=== PATIENT | female | born 1995 | race Caucasian/White ===

== ENCOUNTER 2023-09-04 15:20 | Observation (INO) ==
--- NOTE | 2023-09-04 16:42 | Emergency Department Note ---
ED Provider Note History of Present Illness Chief Complaint: Allergic Reaction Time Seen by Provider: 09/04/23 16:21 28-year-old female who presents the emergency department with complaint of an allergic reaction, including full body hives, welts and throat swelling. The patient reports that she ate some organic cookies last night that had peanut butter and chocolate chips and ingredient. The patient reports a prior history of mild reaction to these foods, but reports that when she starts to feel tingling in her throat, she can usually stop eating and and resolve her symptoms. The patient reports that she was seen by her PCP this morning, and provided a prescription for triamcinolone cream and prednisone. They also recommended that she take Zyrtec and Pepcid as well. The patient did take Benadryl last night which helped with symptoms. She has not taken any Benadryl today. The patient denies any chest pain, palpitations or shortness of breath. She does not feel that her throat swelling has improved or worsened throughout the day. She reports that the rash is itchy. She has not tried any cool compresses for the rash. The patient currently denies any pain. Home Medications Medication Instructions Recorded Confirmed Type alprazolam 0.5 mg tablet (Xanax) 0.5 mg PO BID PRN Anxiety 06/13/22 09/04/23 History bupropion HCl 300 mg 24 hr tablet, 300 mg PO QAM 06/13/22 09/04/23 History extended release prazosin 2 mg capsule 2 mg PO HS 09/25/22 09/04/23 History vitamin B comp and C no.3 15 mg-10 1 cap PO QAM 06/03/23 09/04/23 History mg-50 mg-5 mg-300 mg capsule (B Complex Plus Vitamin C) topiramate 50 mg tablet 50 mg PO HS #30 tabs 08/11/23 09/04/23 Rx atomoxetine 80 mg capsule 80 mg PO QAM 09/04/23 09/04/23 History fluoxetine 40 mg capsule 60 mg PO QAM 09/04/23 09/04/23 History omeprazole 40 mg capsule,delayed 40 mg PO QAM 09/04/23 09/04/23 History release prednisone 10 mg tablet 10 mg PO DAILY #15 tabs 09/04/23 09/04/23 Rx sumatriptan succinate 50 mg tablet 50 mg PO UD PRN Migraine Headache 09/04/23 09/04/23 History triamcinolone acetonide 0.5 % 1 applic topical BID #15 grams 09/04/23 09/04/23 Rx topical cream zaleplon 10 mg capsule 10 mg PO HS 09/04/23 09/04/23 History Allergies Allergy/AdvReac Type Severity Reaction Status Date / Time chocolate Allergy Severe THROAT Verified 09/04/23 19:17 TIGHTENS, HARD TO SWALLOW, HIVES peanut Allergy Severe THROAT Verified 09/04/23 19:17 TIGHTENS, HARD TO SWALLOW, HIVES Past Med/Surg History Problem List (Updated 09/05/23 @ 00:16 by Chaka Floyd) Food allergy (Acute) Anaphylaxis (Acute) Vitamin D deficiency Fatigue GERD (gastroesophageal reflux disease) Depression Anxiety Hirsutism Medical History Chronic fatigue Chronic diarrhea PTSD (post-traumatic stress disorder) attempted SA Anxiety and depression Migraine without aura Surgical History S/P tonsillectomy S/P wisdom tooth extraction History of adenoidectomy History of appendectomy Family History Mother Hypertension Depression Anxiety Father Hypertension Depression Denies family history of Ovarian cancer Prostate cancer Myocardial infarction Breast cancer Lung cancer Colorectal cancer Social History Smoking Status: Never smoker Second Hand Exposure: No; Do You Dip or Chew Tobacco: No; Hx Alcohol Use: Yes Alcohol type: other Alcohol type Comment: mixed drinks Alcohol Intake Frequency Comment: 1-2 drinks every 2 weeks Hx Substance Use: Yes Non-Prescribed Medications: Crack / Cocaine and Marijuana Last Used Substance Other:: 2020 Preferred Language: Citizen Of [place] Communication Ability: Effective Visual Impairment: Limited Hearing Ability: Normal marital status: Single Current Living Situation: Alone Current Living Situation Comment: 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 How many Children do You have: 0 Feels Safe at Home: Yes Childhood Exposure to Second-Hand Smoke: No during the past year weight has: increased > 10 lbs Dental Care, Regularly: No Physical Activity Frequency: Does not Exercise Physical Exam Vital Signs Vital Signs - 24 hr 09/04/23 15:34 09/04/23 15:46 09/04/23 18:05 Temperature 36.8 C Temperature Source Temporal Artery Scan Pulse Rate 112 H Pulse Rate [Right Finger] 90 Pulse Rhythm Pulse Rhythm [Right Finger] Regular Pulse Strength [Right Finger] Normal Respiratory Rate 18 22 18 Respiratory Effort / Characteristics Non-Labored Non-Labored Non-Labored Respiratory Depth Normal Normal Normal Respiratory Pattern Regular Regular Blood Pressure 137/62 Blood Pressure [Right Arm] 130/78 120/70 Blood Pressure Mean 87 Blood Pressure Mean [Right Arm] 95 86 Blood Pressure Position [Right Arm] Sitting Sitting Pulse Oximetry 100 100 99 Oxygen Delivery Method Room Air Room Air Room Air Sepsis Recent Fever Within 48 Hours No Sepsis New/Unexplained Change in Mental Status No Sepsis Action Taken by Nursing No Action Required 09/04/23 19:00 09/04/23 19:00 09/04/23 20:31 Temperature Temperature Source Pulse Rate 83 94 H Pulse Rate [Right Finger] Pulse Rhythm Regular Pulse Rhythm [Right Finger] Pulse Strength [Right Finger] Respiratory Rate 18 Respiratory Effort / Characteristics Respiratory Depth Respiratory Pattern Blood Pressure Blood Pressure [Right Arm] Blood Pressure Mean Blood Pressure Mean [Right Arm] Blood Pressure Position [Right Arm] Pulse Oximetry 98 98 Oxygen Delivery Method Room Air Room Air Sepsis Recent Fever Within 48 Hours Sepsis New/Unexplained Change in Mental Status Sepsis Action Taken by Nursing 09/04/23 21:00 09/04/23 22:57 09/05/23 00:02 Temperature Temperature Source Pulse Rate Pulse Rate [Right Finger] 87 90 82 Pulse Rhythm Pulse Rhythm [Right Finger] Regular Regular Pulse Strength [Right Finger] Normal Normal Respiratory Rate 18 18 17 Respiratory Effort / Characteristics Non-Labored Spontaneous Non-Labored Spontaneous Respiratory Depth Normal Normal Respiratory Pattern Regular Regular Blood Pressure Blood Pressure [Right Arm] 122/88 159/78 H Blood Pressure Mean Blood Pressure Mean [Right Arm] 99 105 Blood Pressure Position [Right Arm] Lying Pulse Oximetry 98 99 100 Oxygen Delivery Method Room Air Room Air Room Air Sepsis Recent Fever Within 48 Hours Sepsis New/Unexplained Change in Mental Status Sepsis Action Taken by Nursing 09/05/23 00:26 Temperature Temperature Source Pulse Rate 94 H Pulse Rate [Right Finger] Pulse Rhythm Pulse Rhythm [Right Finger] Pulse Strength [Right Finger] Respiratory Rate Respiratory Effort / Characteristics Respiratory Depth Respiratory Pattern Blood Pressure Blood Pressure [Right Arm] Blood Pressure Mean Blood Pressure Mean [Right Arm] Blood Pressure Position [Right Arm] Pulse Oximetry Oxygen Delivery Method Sepsis Recent Fever Within 48 Hours Sepsis New/Unexplained Change in Mental Status Sepsis Action Taken by Nursing CONSTITUTIONAL: Healthy and well nourished. Alert and oriented X 3. GCS 15. Patient does not appear in any acute distress. HEENT: No facial edema noted. Examination of oropharynx shows mild uvulitis without evidence for lip or tongue swelling.. RESPIRATORY: Clear to auscultation bilaterally with no wheezing, crackles, rhonchi or stridor. CARDIOVASCULAR: Regular rate and rhythm with no murmurs, rubs or gallops. INTEGUMENTARY: Patient is covered with areas of an urticarial rash. No vesicles, pustules or desquamation. Palms are spared. HEMATOLOGIC: No ecchymosis or petechiae. PSYCHIATRIC: Positive affect. NEUROLOGIC: No focal neurologic deficits noted. Course Course Patient history and physical exam were performed. Nurses notes were reviewed. Vital signs were reviewed and were normal. Because of throat involvement, I did recommend parenteral treatment, and the patient was in agreement. IV access was established, and labs are drawn. The patient was hydrated with a normal saline 500 cc bolus, and administered IV Decadron, Benadryl and Pepcid. Review of labs showed a normal CBC and CMP. Sed rate was mildly elevated at 27. A tryptase level was ordered and is pending. After approximately 1 hour, the patient was still reporting some itching and persistent rash. I recommended applying an ice pack, but the patient reported that she was cold and did not want to put ice on the sites of itchiness or rash. Approximate 45 minutes later, the patient then started to complain of some mild central chest discomfort that felt like reflux. She reports that the throat discomfort did seem to improve, but not completely. She reported that she was also getting itchier. At this point, I did recommend administering epinephrine, which would also include cardiac monitoring and observation for 3 hours. The patient was in agreement with this plan. The patient was administered subcu epinephrine. An initial ECG was performed, showing a normal sinus rhythm with prolonged QT. The patient was placed on market research manager while in the emergency department. A portable chest x-ray was performed and was normal. The patient was frequently reassessed every 5 minutes for approximately 30 minutes after being administered the epinephrine with improvement of symptoms. The patient was reassessed again at approximately 2 hours, reporting resolution of her chest and throat discomfort. She was still complaining of localized areas of itching, with recommendations for application of ice. After 3 hours of total observation, the patient reported that she was starting to feel tightness in her throat again, along with development of evolving areas of hives. The patient was administered additional epinephrine IM. The case was then discussed with Dr. Howe, ED attending physician, as well as Dr. Aviles, [facility] hospitalist, who evaluated patient and has agreed to admission. Please see the hospitalist dictations for further treatment and final disposition. Administered Medications Diphenhydramine HCl (Diphenhydramine 50 Mg/Ml Vial) 25 mg IV Q4H JANETH Stop: 10/05/23 00:59 Last Admin: 09/05/23 01:00 Dose: 25 mg Documented By: JOSEFINA Dexamethasone 6 mg/ Syringe 1.5 mls @ 1 mls/min IV Q6H JANETH Stop: 10/04/23 22:59 Last Admin: 09/04/23 23:44 Dose: 1 mls/min Documented By: JOSEFINA Lactated Ringer's (Lr) 1,000 mls @ 125 mls/hr IV .Q8H JANETH Stop: 09/05/23 06:59 Last Admin: 09/04/23 23:44 Dose: 125 mls/hr Documented By: JOSEFINA Discontinued Medications Dexamethasone Sodium Phosphate (DexamethasonePf 10 Mg/Ml Vial) 10 mg IV NOW ONE Stop: 09/04/23 16:37 Last Admin: 09/04/23 18:00 Dose: 10 mg Documented By: [facility] Diphenhydramine HCl (Diphenhydramine 50 Mg/Ml Vial) 25 mg IV NOW STA Stop: 09/04/23 16:37 Last Admin: 09/04/23 18:00 Dose: 25 mg Documented By: [facility] Diphenhydramine HCl (Diphenhydramine 50 Mg/Ml Vial) 25 mg IV NOW STA Stop: 09/04/23 18:50 Last Admin: 09/04/23 19:13 Dose: 25 mg Documented By: IDD Diphenhydramine HCl (Diphenhydramine 50 Mg/Ml Vial) Confirm Administered Dose 50 mg .ROUTE .STK-MED ONE Stop: 09/05/23 00:56 Last Admin: 09/05/23 00:58 Dose: Not Given Documented By: JOSEFINA Epinephrine HCl (Epinephrine Inj 1 Mg/Ml Amp) 0.3 mg IM NOW STA Stop: 09/04/23 18:50 Last Admin: 09/04/23 19:14 Dose: 0.3 mg Documented By: CHUCKY Epinephrine HCl (Epinephrine Inj 1 Mg/Ml Amp) 0.3 mg IM NOW STA Stop: 09/04/23 22:44 Last Admin: 09/04/23 22:53 Dose: 0.3 mg Documented By: CHUCKY Sodium Chloride (Nss) 500 mls @ 999 mls/hr IV .Q31M ONE Stop: 09/04/23 17:06 Last Infusion: 09/04/23 19:04 Dose: Infused Documented By: Admin: 09/04/23 18:01 Dose: 999 mls/hr Documented By: ARGENIS Famotidine (Pepcid 20mg Iv Push) 20 mg in 5 mls @ 2.5 mls/min IV NOW STA Stop: 09/04/23 16:37 Last Admin: 09/04/23 18:00 Dose: 2.5 mls/min Documented By: [facility] Methylprednisolone (Methylprednisolone 125 Mg/2 Ml Vial) Confirm Administered Dose 125 mg .ROUTE .STK-MED ONE Stop: 09/04/23 23:23 Last Admin: 09/04/23 23:25 Dose: Not Given Documented By: JOSEFINA Medical Decision Making Medical Records Attestation: I reviewed the patient's medical records. Home Medications was personally reviewed by me Laboratory Data Attestation: I reviewed the patient's lab results. 09/04/23 18:05 09/04/23 18:05 Lab Results 09/04/23 Range/Units 18:05 WBC 8.48 (4.8-10.8) K/ul RBC 4.81 (4.20-5.40) M/uL Hgb 12.9 (12.0-16.0) g/dl Hct 39.8 (37.0-47.0) % MCV 82.7 (80.0-100.0) fL MCH 26.8 (25.0-34.0) pg MCHC 32.4 (32.0-36.0) g/dL RDW Std Deviation 41.9 (36.4-46.3) fL RDW Coeff of Miki 13.9 (11.5-14.5) % Plt Count 302 (130-400) K/uL MPV 11.9 (9.4-12.4) fL Immature Gran % (Auto) 0.4 % Neut % (Auto) 68.7 % Lymph % (Auto) 24.9 % [place] % (Auto) 5.2 % Eos % (Auto) 0.6 % Baso % (Auto) 0.2 % Neut # (Auto) 5.83 (1.40-6.50) K/uL Lymph # (Auto) 2.11 (1.20-3.40) K/uL [place] # (Auto) 0.44 (0.11-0.59) K/uL Eos # (Auto) 0.05 (0.00-0.50) K/uL Baso # (Auto) 0.02 (0.00-0.20) K/uL Immature Gran # (Auto) 0.03 (0.01-0.20) K/uL ESR 27 H (0-20) mm/hr Sodium 136 (136-145) mmol/L Potassium 3.7 (3.5-5.1) mmol/L Chloride 105 (98-107) mmol/L Carbon Dioxide 25 (21-32) mmol/L Anion Gap 6 (3-11) BUN 11 (6-23) mg/dl Creatinine 0.96 (0.6-1.2) mg/dl Est Cr Clr Drug Dosing 121.1 ml/min Est GFR ( Amer) 93.3 ml/min Est GFR (Non-Af Amer) 80.5 ml/min BUN/Creatinine Ratio 11.5 (10-20) Glucose 97 (70-99(Fasting)) mg/dl Calcium 8.9 (8.6-10.3) mg/dl Total Bilirubin 0.4 (0.2-1.0) mg/dl AST 21 (13-39) U/L ALT 13 (7-52) U/L Alkaline Phosphatase 59 (34-104) U/L Troponin I High Sens 3.0 (0-14) pg/ml Total Protein 6.9 (6.0-8.3) gm/dl Albumin 4.2 (3.4-5.0) gm/dl Globulin 2.7 (2.5-4.0) gm/dl Albumin/Globulin Ratio 1.6 (0.9-2) Imaging Data Attestation: I personally reviewed and interpreted this imaging study as follows: My Impression: My interpretation of a portable chest x-ray does not show any consolidations, pneumothorax or cardiomegaly. Radiologist report was also reviewed with concurrence. Radiologist's Impression: Chest X-Ray 09/04/23 18:49 XR chest 1V portable CLINICAL HISTORY: Anaphylaxis TECHNIQUE: Single frontal radiograph of the chest was obtained. Comparison: None available at the time of this dictation. FINDINGS: No lines and tubes are seen. The cardiomediastinal silhouette is normal. The lungs are clear. No evidence of pleural effusion or pneumothorax. IMPRESSION: No acute abnormalities and in particular no radiographic evidence of pneumonia. ACT 112: Negative or not required by law. Electronically signed by: Ayush Hernandez M.D. 09/04/2023 7:16 PM ECG Data Attestation: I personally reviewed and interpreted this ECG as follows: Indication: + other (Anaphylaxis with epinephrine administration) Rate (beats per minute): 80 Rhythm: + normal sinus ECG Intervals/blocks: + Normal QRS, + Prolonged QT and + Normal OK ECG Pilot: + Normal ECG ST segments: + Normal ST segments Comparison ECG Date: no prior available MDM Narrative Cardiac monitoring: An order was placed for continuous cardiac monitoring. The monitor shows a rate of 80 with a normal sinus rhythm. plate keeper history was reviewed throughout the evaluation, and no dysrhythmias were noted. See ED Course section for further details of today's visit. The patient presents for evaluation of allergic reaction that was likely precipitated by eating cookies last night containing chocolate and peanut butter, which have been known allergens in the past. The patient reports developing hives last night. She was seen earlier today by her PCP, and has had persistent symptoms throughout the day. The patient presented to the emergency department with symptoms of hives and throat tightness. The patient was administered IV Benadryl, Decadron and Pepcid with short-term control, however with worsening symptoms, was administered IM epinephrine. Close observation after administration of the epinephrine did not show any dysrhythmias or other concerning findings. An ECG and troponin were normal. The patient was placed on market research manager throughout the remainder of her ED observation of approximately 3 hours. The patient did have improvement until she started to develop symptoms a second time. At this point, the patient was administered an additional dose of IM epinephrine, and was admitted for anaphylaxis. Impression Anaphylaxis, Food allergy Critical Care Time Critical Care Time: Yes Total Critical Care Time: 40 I have personally spent approximately 40 minutes of critical care time in the direct management of this patient. Patient did have anaphylaxis requiring 2 rounds of IM epinephrine, requiring close observation and cardiac monitoring. This critical care time includes bedside care, interpretation of diagnostic studies, and testing, discussion with consultants, patient, and family members, and other required patient management activities. This 40 minutes is in excess of all separately billable procedures. Discharge Plan Visit Data Chief Complaint: Allergic Reaction ED Provider: Go Howe ED Midlevel Provider: Chaka Floyd Discharge Problem: Anaphylaxis, Food allergy Forms Stand Alone Forms: My [facility] Prescriptions Prescriptions: No Action topiramate 50 mg tablet 50 mg PO HS Qty: 30 4RF prednisone 10 mg tablet 10 mg PO DAILY Qty: 15 0RF Rx Instructions: PER PT "DID NOT START YET". ORDERED 09/04/23-----Take 2 tablets daily for 5 days, then 1 tablet daily for 3 days, then 1/2 tablet daily for 3 days then stop. Will have 1/2 tablet leftover. prazosin 2 mg capsule 2 mg PO HS B Complex Plus Vitamin C [id number] mg capsule 1 cap PO QAM Rx Instructions: give with food (meal/snack) bupropion HCl 300 mg tablet extended release 24 hr 300 mg PO QAM alprazolam [Xanax] 0.5 mg tablet 0.5 mg PO BID PRN (Reason: Anxiety) Rx Instructions: take 1 to 2 pills as needed fluoxetine 40 mg capsule 60 mg PO QAM zaleplon 10 mg capsule 10 mg PO HS atomoxetine 80 mg capsule 80 mg PO QAM Rx Instructions: PER PT "INCREASES TO 80 MG 09/05/23". triamcinolone acetonide 0.5 % cream 1 applic topical BID Qty: 15 1RF sumatriptan succinate 50 mg tablet 50 mg PO UD PRN (Reason: Migraine Headache) Rx Instructions: take 1 tab at onset of headache; if no relief may repeat 1 tab after at least 2 hrs; max = 4 tabs/24 hr PO omeprazole 40 mg capsule,delayed release(DR/EC) 40 mg PO QAM Referrals Referrals: Zaheer Radford DO [Primary Care Provider] - Discharge Problem: Anaphylaxis Qualifiers: Encounter type: initial encounter Qualified Code(s): T78.2XXA - Anaphylactic shock, unspecified, initial encounter
[2023-09-04] MEDS: FAMOTIDINE 20MG IV PUSH 20 MG/5 ML SYR IV STA (18:00)
[2023-09-04] MEDS: diphenhydrAMINE 50 MG/ML VIAL IV STA ×2 (18:00→19:13)
[2023-09-04] MEDS: dexAMETHasone**PF** 10 MG/ML VIAL IV ONE (18:00)
[2023-09-04] MEDS: SODIUM CHLORIDE 0.9% 500 ML IV ONE (18:01)
[2023-09-04 18:32] LABS: Basophils # (auto) 0.02 K/uL (0.00-0.20); Basophils % (auto) 0.2 %; Eosinophils # (auto) 0.05 K/uL (0.00-0.50); Eosinophils % (auto) 0.6 %; Hematocrit (blood only) 39.8 % (37.0-47.0); Hemoglobin 12.9 g/dl (12.0-16.0); Immature Granulocytes # (auto) 0.03 K/uL (0.01-0.20); Immature Granulocytes % (auto) 0.4 %; Lymphocytes # (auto) 2.11 K/uL (1.20-3.40); Lymphocytes % (auto) 24.9 %; Mean Corpuscular Hemoglobin 26.8 pg (25.0-34.0); Mean Corpuscular Hgb Conc 32.4 g/dL (32.0-36.0); Mean Corpuscular Volume 82.7 fL (80.0-100.0); Mean Platelet Volume 11.9 fL (9.4-12.4); Monocytes # (auto) 0.44 K/uL (0.11-0.59); Monocytes % (auto) 5.2 %; Neutrophils # (auto) 5.83 K/uL (1.40-6.50); Neutrophils % (auto) 68.7 %; Platelet Count 302 K/uL (130-400); RDW Coefficient of Variation 13.9 % (11.5-14.5); RDW Standard Deviation 41.9 fL (36.4-46.3); Red Blood Count 4.81 M/uL (4.20-5.40); White Blood Count 8.48 K/ul (4.8-10.8)
[2023-09-04 18:44] LABS: Albumin Globulin Ratio 1.6 (0.9-2); Albumin Level 4.2 gm/dl (3.4-5.0); BUN Creatinine Ratio 11.5 (10-20); Bilirubin,Total 0.4 mg/dl (0.2-1.0); Calcium 8.9 mg/dl (8.6-10.3); Creatinine Clr Calc Pharmacy 121.1 ml/min; Est GFR (African American) 93.3 ml/min; Est GFR (Non-African American) 80.5 ml/min; Globulin 2.7 gm/dl (2.5-4.0); Potassium 3.7 mmol/L (3.5-5.1); Total Protein 6.9 gm/dl (6.0-8.3)
[2023-09-04] MEDS: EPINEPHrine INJ 1 MG/ML AMP IM STA ×2 (19:14→22:53)
--- NOTE | 2023-09-04 19:17 | XRay Report ---
XR chest 1V portable CLINICAL HISTORY: Anaphylaxis TECHNIQUE: Single frontal radiograph of the chest was obtained. Comparison: None available at the time of this dictation. FINDINGS: No lines and tubes are seen. The cardiomediastinal silhouette is normal. The lungs are clear. No evid ence of pleural effusion or pneumothorax. IMPRESSION: No acute abnormalities and in particular no radiographic evidence of pneumonia. ACT 112: Negative or not required by law. Electronically signed by: Ayush Hernandez M.D. 09/04/2023 7:16 PM
[2023-09-04] MEDS: methylPREDNISolone 125 MG/2 ML VIAL ONE (23:25)
[2023-09-04] MEDS: dexAMETHasone 6 MG in SYRINGE 0 ML IV SCH (23:44)
[2023-09-04] MEDS: LACTATED RINGER'S 1,000 ML IV SCH (23:44)
[2023-09-05] MEDS: diphenhydrAMINE 50 MG/ML VIAL ONE (00:58)
[2023-09-05] MEDS: diphenhydrAMINE 50 MG/ML VIAL IV SCH (01:00)
[2023-09-05] MEDS ORDERED: ONDANSETRON INJ 2 MG/ML 2 ML VIAL IV PRN (01:52)
[2023-09-05] MEDS ORDERED: ALPRAZolam 0.5 MG TABLET PO PRN (01:52)
[2023-09-05] MEDS ORDERED: SUMAtriptan succinate 50 MG TAB PO PRN (01:52)
--- NOTE | 2023-09-05 02:53 | History & Physical Report ---
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 Received dexamethasone 10 mg IV in the ED, and will continue 6 mg IV every 8 sonja rs x 3 doses Received epinephrine 0.3 mg IM x 2 from the ED Status post NSS 500 mill bolus from the ED LR at 125 MLS per hour x 1 L Admit to monitored bed RAST testing for for [facility] region RAST test for food allergy panel PTSD/depression- Continue usual medications: Alprazolam, atomoxetine, bupropion, fluoxetine, prazosin, topiramate, and Zaleplon Admission and Anticipated Discharge Date Admission Date: September 04, 2023 History of Present Illness Chief Complaint: The patient presents to the emergency department with complaint of an allergic reaction consisting of hives, welts all over her body and throat swelling, after eating some organic cookies last night that contained peanut butter and chocolate chips Primary Care Provider: Zaheer Radford DO The patient is a 20-year-old female with a past medical history including vitamin D deficiency, fatigue, GERD, depression, anxiety, hirsutism, food allergy to peanuts and chocolate. The patient reports that she typically is able to have small amount of these ingredients, however, she developed significant reaction. The patient saw her PCP this morning, and was given a prescription for triamcinolone cream and prednisone, and along with the Zyrtec and Pepcid. She reports taking some Benadryl last evening, which helped the symptoms, however, her symptoms worsened throughout the day today, in particular with close throat swelling, she presents to the ED for assessment. Her hands are actually feeling like they are burning associated with the rash Allergies Allergy/AdvReac Type Severity Reaction Status Date / Time chocolate Allergy Severe THROAT Verified 09/04/23 19:17 TIGHTENS, HARD TO SWALLOW, HIVES peanut Allergy Severe THROAT Verified 09/04/23 19:17 TIGHTENS, HARD TO SWALLOW, HIVES Home Medications Medication Instructions Recorded Confirmed Type alprazolam 0.5 mg tablet (Xanax) 0.5 mg PO BID PRN Anxiety 06/13/22 09/04/23 History bupropion HCl 300 mg 24 hr tablet, 300 mg PO QAM 06/13/22 09/04/23 History extended release prazosin 2 mg capsule 2 mg PO HS 09/25/22 09/04/23 History vitamin B comp and C no.3 15 mg-10 1 cap PO QAM 06/03/23 09/04/23 History mg-50 mg-5 mg-300 mg capsule (B Complex Plus Vitamin C) topiramate 50 mg tablet 50 mg PO HS #30 tabs 08/11/23 09/04/23 Rx atomoxetine 80 mg capsule 80 mg PO QAM 09/04/23 09/04/23 History fluoxetine 40 mg capsule 60 mg PO QAM 09/04/23 09/04/23 History omeprazole 40 mg capsule,delayed 40 mg PO QAM 09/04/23 09/04/23 History release prednisone 10 mg tablet 10 mg PO DAILY #15 tabs 09/04/23 09/04/23 Rx sumatriptan succinate 50 mg tablet 50 mg PO UD PRN Migraine Headache 09/04/23 09/04/23 History triamcinolone acetonide 0.5 % 1 applic topical BID #15 grams 09/04/23 09/04/23 Rx topical cream zaleplon 10 mg capsule 10 mg PO HS 09/04/23 09/04/23 History Past Med/Surg History Problem List (Updated 09/05/23 @ 03:00 by Melvin Aviles MD) PTSD (post-traumatic stress disorder) attempted SA 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 Allergy to peanuts Food allergy (Acute) Anaphylaxis (Acute) Vitamin D deficiency Fatigue GERD (gastroesophageal reflux disease) Depression Anxiety Hirsutism Medical History Chronic fatigue Chronic diarrhea PTSD (post-traumatic stress disorder) attempted SA Anxiety and depression Migraine without aura Surgical History S/P tonsillectomy S/P wisdom tooth extraction History of adenoidectomy History of appendectomy Family History Mother Hypertension Depression Anxiety Father Hypertension Depression Denies family history of Ovarian cancer Prostate cancer Myocardial infarction Breast cancer Lung cancer Colorectal cancer Social History Smoking Status: Never smoker Second Hand Exposure: No; Do You Dip or Chew Tobacco: No; Hx Alcohol Use: No Hx Substance Use: No Preferred Language: Yemeni Communication Ability: Effective Visual Impairment: Limited Hearing Ability: Normal Surgical Services Tech Required: No Beliefs That Will Affect Care: None marital status: Single Current Living Situation: Alone Current Living Situation Comment: [employer] current occupational status: employed How many Children do You have: 0 Other Information That Helps Us Care for You: No Feels Safe at Home: Yes Safety Concerns: Feels Safe At This Time Childhood Exposure to Second-Hand Smoke: No during the past year weight has: increased > 10 lbs Dental Care, Regularly: No Physical Activity Frequency: Does not Exercise Assistive Devices: None Review of Systems Review of Systems: The patient denies chest pain, palpitations, shortness of breath, dyspnea on exe rtion, lower extremity swelling, fevers, chills, sweats, weight change, fatigue, nausea, vomiting, diarrhea , constipation, abdominal pain, pelvic pain, blood in urine or stool, dysuria, urinary frequency or urgency, lightheadedness, dizziness, headache, memory loss, loss of consciousness, abnormal bruising or bleeding, imbalance, focal or generalized weakness, generalized arthralgias or myalgias, back or neck pain, or night sweats. The review of systems is otherwise negative other than for that already noted above, and at least 10 systems have been reviewed. Physical Exam Physical Exam: The patient is awake, alert and oriented 3, well developed and well nourished, normocephalic and atraumatic, lying in bed and in no acute distress. HEENT--PERRL, EOMI, mucous membranes and oropharynx dry. Neck--supple. No JVD. No bruits. Thyroid normal, trachea midline, no adenopathy. Heart--normal S1 and S2. No murmurs, rubs or gallops. Lungs--clear bilaterally, no respiratory distress, no accessory muscle use. Abdomen--normal bowel sounds and soft. Nontender. Nondistended, no hernias or ma sses, no organomegaly. Extremities--no cyanosis or clubbing. No edema. There are good distal pulses b/l. Dermatologic--hives on hands bilaterally, scattered on chest and back, and lower extremities Neurologic--cranial nerves II through XII grossly intact. Rheumatologic--normal range of motion. Psychiatric--normal affect. Results & Data Results & Data Vital Signs (Past 12 Hours) Vital Signs Temp Pulse Pulse Resp BP BP Pulse Ox 09/05/23 02:03 09/05/23 02:03 83 18 135/77 98 09/05/23 00:26 94 H 09/05/23 00:02 82 17 159/78 H 100 09/04/23 22:57 90 18 122/88 99 09/04/23 21:00 87 18 98 09/04/23 20:31 94 H 09/04/23 19:00 83 18 98 09/04/23 19:00 98 09/04/23 18:05 18 120/70 99 09/04/23 15:46 90 22 130/78 100 09/04/23 15:34 36.8 C 112 H 18 137/62 100 Pulse Ox O2 Del Method O2 Del Method 09/05/23 02:03 95 Room Air 09/05/23 02:03 Room Air 09/05/23 00:26 09/05/23 00:02 Room Air 09/04/23 22:57 Room Air 09/04/23 21:00 Room Air 09/04/23 20:31 09/04/23 19:00 Room Air 09/04/23 19:00 Room Air 09/04/23 18:05 Room Air 09/04/23 15:46 Room Air 09/04/23 15:34 Room Air Laboratory Results Laboratory Results WBC 8.48 K/ul (4.8-10.8) 09/04/23 18:05 RBC 4.81 M/uL (4.20-5.40) 09/04/23 18:05 Hgb 12.9 g/dl (12.0-16.0) 09/04/23 18:05 Hct 39.8 % (37.0-47.0) 09/04/23 18:05 MCV 82.7 fL (80.0-100.0) 09/04/23 18:05 MCH 26.8 pg (25.0-34.0) 09/04/23 18:05 MCHC 32.4 g/dL (32.0-36.0) 09/04/23 18:05 RDW Std Deviation 41.9 fL (36.4-46.3) 09/04/23 18:05 RDW Coeff of Miki 13.9 % (11.5-14.5) 09/04/23 18:05 Plt Count 302 K/uL (130-400) 09/04/23 18:05 MPV 11.9 fL (9.4-12.4) 09/04/23 18:05 Immature Gran % (Auto) 0.4 % 09/04/23 18:05 Neut % (Auto) 68.7 % 09/04/23 18:05 Lymph % (Auto) 24.9 % 09/04/23 18:05 [place] % (Auto) 5.2 % 09/04/23 18:05 Eos % (Auto) 0.6 % 09/04/23 18:05 Baso % (Auto) 0.2 % 09/04/23 18:05 Neut # (Auto) 5.83 K/uL (1.40-6.50) 09/04/23 18:05 Lymph # (Auto) 2.11 K/uL (1.20-3.40) 09/04/23 18:05 [place] # (Auto) 0.44 K/uL (0.11-0.59) 09/04/23 18:05 Eos # (Auto) 0.05 K/uL (0.00-0.50) 09/04/23 18:05 Baso # (Auto) 0.02 K/uL (0.00-0.20) 09/04/23 18:05 Immature Gran # (Auto) 0.03 K/uL (0.01-0.20) 09/04/23 18:05 ESR 27 mm/hr (0-20) H 09/04/23 18:05 Sodium 136 mmol/L (136-145) 09/04/23 18:05 Potassium 3.7 mmol/L (3.5-5.1) 09/04/23 18:05 Chloride 105 mmol/L (98-107) 09/04/23 18:05 Carbon Dioxide 25 mmol/L (21-32) 09/04/23 18:05 Anion Gap 6 (3-11) 09/04/23 18:05 BUN 11 mg/dl (6-23) 09/04/23 18:05 Creatinine 0.96 mg/dl (0.6-1.2) 09/04/23 18:05 Est Cr Clr Drug Dosing 121.1 ml/min 09/04/23 18:05 Est GFR ( Amer) 93.3 ml/min 09/04/23 18:05 Est GFR (Non-Af Amer) 80.5 ml/min 09/04/23 18:05 BUN/Creatinine Ratio 11.5 (10-20) 09/04/23 18:05 Glucose 97 mg/dl (70-99(Fasting)) 09/04/23 18:05 Calcium 8.9 mg/dl (8.6-10.3) 09/04/23 18:05 Total Bilirubin 0.4 mg/dl (0.2-1.0) 09/04/23 18:05 AST 21 U/L (13-39) 09/04/23 18:05 ALT 13 U/L (7-52) 09/04/23 18:05 Alkaline Phosphatase 59 U/L (34-104) 09/04/23 18:05 Troponin I High Sens 3.0 pg/ml (0-14) 09/04/23 18:05 Total Protein 6.9 gm/dl (6.0-8.3) 09/04/23 18:05 Albumin 4.2 gm/dl (3.4-5.0) 09/04/23 18:05 Globulin 2.7 gm/dl (2.5-4.0) 09/04/23 18:05 Albumin/Globulin Ratio 1.6 (0.9-2) 09/04/23 18:05 Impressions Chest X-Ray 09/04/23 18:49 XR chest 1V portable CLINICAL HISTORY: Anaphylaxis TECHNIQUE: Single frontal radiograph of the chest was obtained. Comparison: None available at the time of this dictation. FINDINGS: No lines and tubes are seen. The cardiomediastinal silhouette is normal. The lungs are clear. No evidence of pleural effusion or pneumothorax. IMPRESSION: No acute abnormalities and in particular no radiographic evidence of pneumonia. ACT 112: Negative or not required by law. Electronically signed by: Ayush Hernandez M.D. 09/04/2023 7:16 PM Code Status & VTE Plan Code Status Full code VTE Prophylaxis Plan VTE Prophylaxis will be ordered: Yes PG Care Time/CCT Total # of Minutes Spent Total Time Spent with Patient: Total time spent is greater than 50% in coordination of care (as documented) at patient's floor/unit and/or counseling patient: Coding Level of Care Code 13807 INT INP/OBS CARE 3/75MIN Diagnoses Allergy to peanuts Z91.010 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 Z91.018 Anaphylaxis T78.2XXA Encounter type: initial encounter Vitamin D deficiency E55.9 GERD (gastroesophageal reflux disease) K21.9 Depression F32.A Anxiety F41.9 (3) Anaphylaxis Encounter type: initial encounter Qualified Code(s): T78.2XXA - Anaphylactic shock, unspecified, initial encounter
[2023-09-05] MEDS: FAMOTIDINE 20MG IV PUSH 20 MG/5 ML SYR IV SCH (06:24)
[2023-09-05 06:51] LABS: Hematocrit (blood only) 39.7 % (37.0-47.0); Hemoglobin 13.1 g/dl (12.0-16.0); Mean Corpuscular Hemoglobin 27.6 pg (25.0-34.0); Mean Corpuscular Volume 83.8 fL (80.0-100.0); Mean Platelet Volume 11.8 fL (9.4-12.4); Platelet Count 288 K/uL (130-400); RDW Coefficient of Variation 13.9 % (11.5-14.5); RDW Standard Deviation 42.4 fL (36.4-46.3); Red Blood Count 4.74 M/uL (4.20-5.40); White Blood Count 8.82 K/ul (4.8-10.8)
[2023-09-05 07:03] LABS: Albumin Globulin Ratio 1.5 (0.9-2); Albumin Level 4.2 gm/dl (3.4-5.0); BUN Creatinine Ratio 11.5 (10-20); Bilirubin,Total 0.3 mg/dl (0.2-1.0); Calcium 9.4 mg/dl (8.6-10.3); Est GFR (African American) 119.9 ml/min; Est GFR (Non-African American) 103.5 ml/min; Globulin 2.8 gm/dl (2.5-4.0); Magnesium 2.1 mg/dl (1.7-2.4)
[2023-09-05 07:34] LABS: Immature Granulocytes # (auto) 0.04 K/uL (0.01-0.20); Immature Granulocytes % (auto) 0.5 %; Lymphocytes # (auto) 0.58 K/uL (1.20-3.40); Lymphocytes % (auto) 6.6 %; Monocytes # (auto) 0.08 K/uL (0.11-0.59); Monocytes % (auto) 0.9 %; Neutrophils # (auto) 8.12 K/uL (1.40-6.50); RBC Morphology Unremarkable
[2023-09-05] MEDS: PANTOprazole 40 MG TAB PO SCH (08:24)
[2023-09-05] MEDS: FLUoxetine HCL 20 MG CAP PO SCH (08:25)
[2023-09-05] MEDS: VITAMIN B COMPLEX TAB PO SCH (08:25)
[2023-09-05] MEDS: buPROPion XL 300 MG TABCR PO SCH (08:25)
[2023-09-05] MEDS: TRIAMCINOLONE ACET 0.5% CR 15 GM TUBE TOP SCH (08:25)
[2023-09-05] MEDS: ATOMOXETINE HCL 40 MG CAPSULE PO SCH (08:25)
[2023-09-05] MEDS ORDERED: predniSONE 10 MG TABLET PO SCH (09:00)
--- NOTE | 2023-09-05 13:14 | Electrocardiogram Report ---
Test Reason : Blood Pressure : / mmHG Vent. Rate : 080 BPM Atrial Rate : 080 BPM P-R Int : 128 ms QRS Dur : 100 ms QT Int : 420 ms P-R-T Axes : 055 024 032 degrees QTc Int : 484 ms Normal sinus rhythm Prolonged QT Abnormal ECG No previous ECGs available Confirmed by Aric Holley ([id number]) on 09/05/2023 1:14:22 PM Referred By: REFERRED SELF Confirmed By:Aric Holley
[2023-09-05] MEDS: hydrOXYzine HCl 25 MG TAB PO STA (15:30)
--- NOTE | 2023-09-05 18:05 | Hospitalist Progress Note ---
Date of Service September 05, 2023 Assessment & Plan (1) Anaphylaxis: Plan: Anaphylactic reaction to peanuts and chocolate- consumed 09/02 Trial of hydroxyzine 25mg - felt that benadryl worked better - schedule benadryl 25mg PO q6H Famotidine 20 mg IV every 12 hours. Received dexamethasone 10 mg IV in the ED, and then recieved 6 mg IV every 8 hours x 3 doses - pt apprehensive of taking steroids Received epinephrine 0.3 mg IM x 2 from the ED RAST testing for for [place] - pending RAST test for food allergy panel - pending Patient without further respiratory symptoms. no indication for more epi at this time discussed we will likely not find the cause during her stay but follow up with allergy scheduled next week can start that process (2) Depression: Plan: PTSD/depression- Continue usual medications: Alprazolam, atomoxetine, bupropion, fluoxetine, prazosin, topiramate, and Zaleplon Plan dispo: continued inpatient stay DVT proh: low risk Admission and Anticipated Discharge Date Admission Date: September 04, 2023 Supervising Physician Co-Signing Physician Notes Attending Attestation - Chart reviewed, care plan d/w CHERELLE Connors. I agree w/ the duffy components of her documentation. Agree with current medicines for recent severe food allergy/rxn. Hunter Torres MD Subjective patient seen multiple times throughout the day - still with continued itching patient has not showered since incident does not have an epi pen at home No difficulty breathing today Review of Systems Review of Systems: All systems reviewed & are unremarkable except as noted in Subjective Physical Exam Physical Exam: General: NAD, VS as above Resp: normal respiratory effort, lungs clear to auscultation, no wheezing CV: RRR, no murmur, Extremities: Moves all extremities, no edema Neuro: A&O x3, Skin: intact, no lesions noted Results & Data Results & Data Vital Signs (Past 12 Hours) Vital Signs Pulse Pulse Resp BP Pulse Ox O2 Del Method 09/05/23 16:00 107 H 09/05/23 14:15 96 H 137/81 98 Room Air 09/05/23 09:45 84 18 142/94 H 98 Room Air 09/05/23 06:58 85 Laboratory Results CBC and chemistry reviewed PG Care Time/CCT Total # of Minutes Spent Total Time Spent with Patient: Total time spent is greater than 50% in coordination of care (as documented) at patient's floor/unit and/or counseling patient: Coding Level of Care Code None Diagnoses Anaphylaxis T78.2XXA Encounter type: initial encounter Depression F32.A (1) Anaphylaxis Encounter type: initial encounter Qualified Code(s): T78.2XXA - Anaphylactic shock, unspecified, initial encounter
[2023-09-05] MEDS: diphenhydrAMINE Capsule 25 MG CAP PO SCH (18:22)
[2023-09-05] MEDS: TOPIRAMATE 50 MG TAB PO SCH (20:21)
[2023-09-05] MEDS: PRAZOSIN HCL 1 MG CAP PO SCH (20:21)
[2023-09-06] MEDS: ACETAMINOPHEN 325 MG TAB PO PRN (00:39)
[2023-09-06] MEDS: diphenhydrAMINE Capsule 25 MG CAP PO ONE (00:40)
[2023-09-06] MEDS: POLYETHYLENE (MIRALAX) 17 GM PACK PO PRN (00:56)
[2023-09-06] MEDS: POLYETHYLENE (MIRALAX) 17 GM PACK ONE (01:29)
[2023-09-06 06:37] LABS: Basophils # (auto) 0.02 K/uL (0.00-0.20); Basophils % (auto) 0.1 %; Hematocrit (blood only) 34.5 % (37.0-47.0); Hemoglobin 11.3 g/dl (12.0-16.0); Immature Granulocytes % (auto) 0.7 %; Lymphocytes # (auto) 2.27 K/uL (1.20-3.40); Lymphocytes % (auto) 15.7 %; Mean Corpuscular Hemoglobin 27.5 pg (25.0-34.0); Mean Corpuscular Hgb Conc 32.8 g/dL (32.0-36.0); Mean Corpuscular Volume 83.9 fL (80.0-100.0); Mean Platelet Volume 11.8 fL (9.4-12.4); Monocytes # (auto) 0.79 K/uL (0.11-0.59); Monocytes % (auto) 5.5 %; Neutrophils # (auto) 11.27 K/uL (1.40-6.50); Platelet Count 279 K/uL (130-400); RDW Coefficient of Variation 14.2 % (11.5-14.5); RDW Standard Deviation 43.6 fL (36.4-46.3); Red Blood Count 4.11 M/uL (4.20-5.40); White Blood Count 14.45 K/ul (4.8-10.8)
[2023-09-06 07:05] LABS: Albumin Globulin Ratio 1.6 (0.9-2); Albumin Level 3.8 gm/dl (3.4-5.0); BUN Creatinine Ratio 17.9 (10-20); Bilirubin,Total 0.2 mg/dl (0.2-1.0); Calcium 8.9 mg/dl (8.6-10.3); Est GFR (African American) 119.9 ml/min; Est GFR (Non-African American) 103.5 ml/min; Globulin 2.4 gm/dl (2.5-4.0); Potassium 3.7 mmol/L (3.5-5.1); Total Protein 6.2 gm/dl (6.0-8.3)
--- NOTE | 2023-09-06 11:48 | Discharge Summary ---
Discharge Summary Date of Service September 06, 2023 Principal Dx & Hospital Course #1 = Principal Diagnosis (1) Anaphylaxis: Anaphylactic reaction to peanuts and chocolate- consumed 09/02 Received epinephrine 0.3 mg IM x 2 from the ED Received dexamethasone IV, pepcid IV and scheduled benadryl. -Trial of hydroxyzine 25mg - felt that Benadryl worked better Discharged home with Dexamethasone taper, pepcid PO bid, benadryl q6H, zyrtec 20mg daily and prn epi pen RAST testing for for [place] - pending RAST test for food allergy panel - pending discussed we will likely not find the cause during her stay but follow up with allergy scheduled next week can start that process (2) Depression: PTSD/depression- Continue usual medications: Alprazolam, atomoxetine, bupropion, fluoxetine, prazosin, topiramate, and Zaleplon Plan dispo: discharge to home today, allergy follow up next week Notes For Next Care Provider patient main symptoms was her rash, was able to protect her airway throughout stay. Day of discharge claiming food stuck in oralpharyx but none visualized. Lots of reasurrance provided regarding treatment plan Medication Changes From Visit Discharged home with Dexamethasone taper, pepcid PO bid, benadryl q6H, zyrtec 20mg daily and prn epi pen Admission HPI Per Admitting Provider The patient is a 20-year-old female with a past medical history including vitamin D deficiency, fatigue, GERD, depression, anxiety, hirsutism, food allergy to peanuts and chocolate. The patient reports that she typically is able to have small amount of these ingredients, however, she developed significant reaction. The patient saw her PCP this morning, and was given a prescription for triamcinolone cream and prednisone, and along with the Zyrtec and Pepcid. She reports taking some Benadryl last evening, which helped the symptoms, however, her symptoms worsened throughout the day today, in particular with close throat swelling, she presents to the ED for assessment. Her hands are actually feeling like they are burning associated with the rash Discharge Exam General: NAD, VS as above HEENT: no foriegn body, no tonsilar edema, no erythema, MMM Resp: normal respiratory effort, lungs clear to auscultation, no wheezing CV: RRR, no murmur, Extremities: Moves all extremities, no edema Neuro: A&O x3, Skin:rash much improved Updated Medication List Medication Instructions Recorded Confirmed Type alprazolam 0.5 mg tablet (Xanax) 0.5 mg PO BID PRN Anxiety 06/13/22 09/04/23 History bupropion HCl 300 mg 24 hr tablet, 300 mg PO QAM 06/13/22 09/04/23 History extended release prazosin 2 mg capsule 2 mg PO HS 09/25/22 09/04/23 History vitamin B comp and C no.3 15 mg-10 1 cap PO QAM 06/03/23 09/04/23 History mg-50 mg-5 mg-300 mg capsule (B Complex Plus Vitamin C) topiramate 50 mg tablet 50 mg PO HS #30 tabs 08/11/23 09/04/23 Rx atomoxetine 80 mg capsule 80 mg PO QAM 09/04/23 09/04/23 History fluoxetine 40 mg capsule 60 mg PO QAM 09/04/23 09/04/23 History omeprazole 40 mg capsule,delayed 40 mg PO QAM 09/04/23 09/04/23 History release sumatriptan succinate 50 mg tablet 50 mg PO UD PRN Migraine Headache 09/04/23 09/04/23 History zaleplon 10 mg capsule 10 mg PO HS 09/04/23 09/04/23 History cetirizine 10 mg capsule (Zyrtec) 20 mg (2 x 10 mg) PO DAILY 14 days 09/06/23 Rx #28 caps dexamethasone 4 mg tablet See Taper PO DAILY #7 tabs 09/06/23 Rx diphenhydramine HCl 25 mg capsule 25 mg PO Q6 #30 caps 09/06/23 Rx (Benadryl) epinephrine 0.3 mg/0.3 mL 0.3 mg (0.3 mL) IM Q4H PRN 09/06/23 Rx injection, auto-injector (EpiPen anaphylaxis #2 ea 2-Stuart) famotidine 20 mg tablet (Pepcid) 20 mg PO BID 2 weeks #28 tabs 09/06/23 Rx triamcinolone acetonide 0.5 % 1 applic topical BID #15 grams 09/06/23 Rx topical cream Hospital Stay Data Consultations 09/04/23 22:26 ED Decision to Admit Stat Diagnostic Imagining Performed Chest X-Ray 09/04/23 18:49 XR chest 1V portable CLINICAL HISTORY: Anaphylaxis TECHNIQUE: Single frontal radiograph of the chest was obtained. Comparison: None available at the time of this dictation. FINDINGS: No lines and tubes are seen. The cardiomediastinal silhouette is normal. The lungs are clear. No evidence of pleural effusion or pneumothorax. IMPRESSION: No acute abnormalities and in particular no radiographic evidence of pneumonia. ACT 112: Negative or not required by law. Electronically signed by: Ayush Hernandez M.D. 09/04/2023 7:16 PM Pending Results Patient Have Any Pending Studies at Discharge: Yes (allergy testing, tryptase ) Discharge Instructions Given to Patient (Per Discharging Provider) Ms. Flowers, Vishal were hospitalized after presumed allergic reaction. You were treated with IV steroids, Benadryl and Pepcid. Thankfully throughout the duration of this reaction you have been able to protect her airway, and the main symptom that you have is the rash this may take several days to go away. Please continue to avoid peanuts and chocolate and consider any other triggers in your home/environment that may have caused this reaction. The blood work allergy testing that was done is still pending and you can discuss this at your appointment with the customer solutions teammate next week. We trialed hydroxyzine PO while you were here and you did not feel like that helped. You also received IV dexamethasone. Recommendations: * Continue Benadryl 25 mg every 6 hours - as your rash continues to improve you can decrease this to twice a day then once a day and stop - If you have worsening of symptoms you can take an additional dose of Benadryl - If you ever do not know what to do you can call your PCP special effects person number for advise * Continue Pepcid 20mg twice a day. I sent in a prescription for this, but if its not covered, you can buy the over the counter version - As your symptoms get better you can also wean yourself off of this - the Pepcid is for the allergy symptoms. you should continue your omeprazole as usual for heartburn/GERD * Zyrtec 20mg daily will also help * Steroids - I have sent in dexamethasone, you tolerated this well and would recommend that you take this to help with the process. * EpiPen - should only be used in emergencies, (if you cant breathe). Recommend coming to the ED after administration for monitoring. * Continue steroid cream - thin amount twice a day. Itching beyond that would use general unscented lotion as too much topical steroids can thin your skin. No changes were made to your home medications. Activity: You can do normal everyday activities as your body allows. Take rest breaks if you feel tired. Do not overexert. Stop activity if you have pain, shortness of breath or feel dizzy. Follow-up appointments: Make an appointment with your primary care physician within one week of discharge. A copy of this summary will be sent to them. Every time you see your primary care physician, or any other doctor, bring your medication list, and a list of questions. CONTACT YOUR PRIMARY CARE PROVIDER if you experience any of the following: Shortness of breath or difficulty breathing Fevers or chills Feeling tired with normal activity or experiencing dizziness or fainting Difficulty following your treatment plan, or difficulty taking medications CALL 911 OR GO TO THE EMERGENCY DEPARTMENT if you experience any of the following: Severe abdominal pain or nausea/vomiting Severe chest pain, or chest pain that radiates (moves) to your jaw or arm Sudden, severe shortness of breath or difficulty breathing Thank you for allowing us to participate in your care. Total Time Total Time Spent Total Time Spent (In Minutes): Time spend day of discharge 65 minutes including direct patient care, medication reconciliation, documentation, review of labs and images, and coordination of care. Over 35 minutes spent in patient education between myself and Dr. dowling. Coding Level of Care Code 23827 INP/OBS DISCH >30 MIN Diagnoses Anaphylaxis T78.2XXA Encounter type: initial encounter Depression F32.A
[2023-09-07 16:57] LABS: Almond Allergen IgE <0.10 kU/L; Alternaria Class 0; Alternaria IgE <0.10 kU/L; Ash (White) Class 0; Ash (White) IgE <0.10 kU/L; Asperg Fumig Class 0; Asperg Fumig IgE <0.10 kU/L; Bermuda Grass Class 0; Bermuda Grass IgE <0.10 kU/L; Birch Class 0; Birch IgE <0.10 kU/L; Cashew IgE <0.10 kU/L; Cat Dander Class 0; Cat Dander IgE <0.10 kU/L; Cladosporium IgE <0.10 kU/L; Cladosporium her Class 0; Cockroach Allergen Class 0; Cockroach IgE Ab <0.10 kU/L; Codfish IgE <0.10 kU/L; Cottonwood Class 0; Cottonwood IgE <0.10 kU/L; D. farinae Class 0; D. farinae IgE <0.10 kU/L; D. pteronyssinus Class 0; D. pteronyssinus IgE <0.10 kU/L; Dog Dander Class 0; Dog Dander IgE <0.10 kU/L; Egg White Class 0; Egg White IgE <0.10 kU/L; Elm Class 0; Elm IgE <0.10 kU/L; Immunoglobulin IgE 94 kU/L (<OR=114); Maple (Box Elder) IgE <0.10 kU/L; Maple Class 0; Milk, Cow's Class 0; Milk, Cow's IgE <0.10 kU/L; Mountain Cedar Class 0; Mountain Cedar IgE <0.10 kU/L; Mouse Urine Protein Class 0; Mouse Urine Protein IgE <0.10 kU/L; Mugwort (W6) IgE <0.10 kU/L; Mugwort Class 0; Oak-White Class 0; Oak-White IgE <0.10 kU/L; Peanut IgE <0.10 kU/L; Penic Notatum Class 0; Penic Notatum IgE <0.10 kU/L; Rough Pigweed Class 0; Rough Pigweed IgE <0.10 kU/L; Salmon IgE <0.10 kU/L; Scallop IgE <0.10 kU/L; Sheep Sorrel Class 0; Sheep Sorrel IgE <0.10 kU/L; Short Ragweed Class 0; Short Ragweed IgE <0.10 kU/L; Shrimp Class 0; Shrimp IgE <0.10 kU/L; Sycamore Class 0; Sycamore IgE <0.10 kU/L; Timothy Class 0; Timothy IgE <0.10 kU/L; Tuna IgE <0.10 kU/L; Walnut IgE <0.10 kU/L; Walnut Tree Class 0; Walnut Tree IgE <0.10 kU/L; Wheat Class 0; White Mulberry Class 0; White Mulberry IgE <0.10 kU/L
== END 2023-09-06 15:29 | disposition home or self-care (01) ==
LOC: SUATTDRO → ED 15:20 → EDINP 15:20 → SUATTDRO 22:54 → 4W 09-05 01:53